=== PATIENT | female | born 1945 | race Caucasian/White ===

== ENCOUNTER → 2017-09-18 | Outpatient (CLI) | payer MEDICARE ==
--- NOTE | 2017-09-18 11:24 | Diagnostic Imaging Report ---
PROCEDURE:X-RAY ABDOMEN - KUB COMPARISON:None. INDICATIONS:CALCULUS OF KIDNEY FINDINGS: There is a non-obstructed bowel-gas pattern. Spine stimulator device overlying left lower quadrant. Soft tissue calcifications in bilateral upper quadrants as well as lower quadrants are probably vascular. There are no acute osseous abnormalities. Degenerative changes of the lower lumbar spine and bilateral hips. The lung bases are clear. CONCLUSION: Numerous calcifications overlying bilateral upper quadrants are felt to be vascular. If there is high clinical concern for renal calculus, consider obtaining renal stone protocol CT. Dictated by: Mert Seymour M.D. on 09/18/2017 at 11:28 Electronically approved by: Mert Seymour M.D. on 09/18/2017 at 11:28
== END ==
LOC: RAD 08:32
PROVIDERS: ATTEND Urology
DX: N20.0 Calculus of kidney (principal)
CPT/HCPCS: 74018

== ENCOUNTER → 2019-11-12 | Outpatient (CLI) | payer MEDICARE ==
--- NOTE | 2019-11-12 14:14 | Diagnostic Imaging Report ---
EXAM: CT Chest WITHOUT intravenous contrast 11/12/2019 1:30 PM INDICATION: ^[id number] ^1330 ^CHRONIC COUGH COMPARISON: None available TECHNIQUE: Chest was scanned utilizing a multidetector helical scanner from the lung apex through the level of the adrenal glands without administration of IV contrast. Coronal and sagittal reformations were obtained. Routine protocol was performed. IV CONTRAST: None RADIATION DOSE: Total DLP: 537 mGy*cm. Dose modulation, iterative reconstruction, and/or weight based adjustment of the mA/kV was utilized to reduce the radiation dose to as low as reasonably achievable. COMPLICATIONS: None FINDINGS: LINES/ TUBES: None. LUNGS AND AIRWAYS: Large airways are clear. Negative for focal consolidation. Apical predominant paraseptal emphysematous changes are noted. There are 5 mm and 2 mm nodules within the right lower lobe. Otherwise no suspicious nodule or mass. PLEURA: Negative for effusion or pneumothorax. HEART AND MEDIASTINUM: The thyroid gland is normal. No mediastinal, hilar or axillary lymphadenopathy. Calcified left hilar lymph nodes are noted. The heart is normal in size. There is no pericardial effusion. Coronary artery calcifications are noted. Mild atherosclerotic changes of the aortic arch are noted. UPPER ABDOMEN: Splenic calcifications are noted. Left hepatic hypertrophy with slightly nodular contours are noted which can is seen in patients with cirrhosis. Bilateral adrenal gland thickening is noted without discrete nodule. Hyperdense lesion is identified at the superior pole of the left kidney measuring up to 1.1 cm, indeterminate by this examination. BONES: Negative for acute osseous abnormality. Advanced degenerative changes lower cervical multilevel degenerative changes of the thoracic spine are noted. Thoracic spinal cord stimulators are noted. No suspicious lytic or blastic lesion. Healed right posterior rib deformities are noted. SOFT TISSUES: Soft tissues are unremarkable. COMPARISON: None IMPRESSION: 1. Mild emphysematous and COPD changes with multifocal scarring, predominantly within the lung apices. There are 5 mm and 2 mm nodules within the right lower lobe. Recommend obtaining prior outside hospital imaging to assess for stability. Guidelines for Management of Incidental Pulmonary Nodules Detected on CT Images: From the Fleischner Society 2017. Radiology 2017;284(1):228-243 Multiple Solid < 6 mm Patients at low risk for lung cancer: No routine follow-up Patients at high risk for lung cancer: CT at 12 months. If stable at 12 months, no further follow-up. 2. Question underlying cirrhotic liver morphology with hypertrophy of the left hepatic lobe and mildly nodular contours. 3. 1.1 cm left superior pole hyperdense renal lesion is indeterminate by this examination. This may relate to a hemorrhagic cyst. Consider follow-up. Nonemergent renal ultrasound versus renal protocol MRI. 4. Nonspecific bilateral adrenal gland thickening. Signed by: Al Mast MD on 11/12/2019 2:10 PM
== END ==
LOC: CT 13:06
PROVIDERS: ATTEND Internal Medicine
DX: R05 Cough (principal); J43.9 Emphysema, unspecified
CPT/HCPCS: 71250

== ENCOUNTER → 2019-12-12 | Outpatient (CLI) | payer MEDICARE ==
--- NOTE | 2019-12-12 13:47 | Diagnostic Imaging Report ---
Abdomen, one view AP INDICATION: ^[id number] ^1212 ^CALCULUS OF KIDNEY Comparison: CT chest dated 11/12/2019. Discussion: Hyperdense left superior pole renal mass is noted measuring up to 1.5 cm. No other calculi identified projecting over the renal shadows. Evaluation is limited due to overlying soft tissues and bowel gas. Splenic and hepatic calcifications are noted. Visualized bowel loops are not dilated. Partially visualized lung bases are clear. Bilateral lower quadrant calcifications are noted probably within the soft tissues or related to degenerative change. Left lower quadrant spinal cord stimulators noted. Advanced degenerative changes at the lumbosacral junction are noted. No acute osseous abnormality. Vascular calcifications are noted within the proximal lower extremities. IMPRESSION: 1. No radiographically apparent renal calculi. 2. Reinitiation of a hyperdense left superior pole renal lesion measuring up to 1.5 cm. Indeterminate by this examination. Signed by: Al Mast MD on 12/12/2019 1:44 PM
== END ==
LOC: RAD 12:03
PROVIDERS: ATTEND Urology
DX: N20.0 Calculus of kidney (principal)
CPT/HCPCS: 74018

== ENCOUNTER → 2020-03-18 | Outpatient (CLI) | payer MEDICARE | LOC: CT 07:49 | PROVIDERS: ATTEND Urology | DX: N20.0 Calculus of kidney (principal) | CPT/HCPCS: 74176 ==

== ENCOUNTER → 2020-03-25 | Outpatient (CLI) | payer MEDICARE ==
[~2020-03-25] MED LIST: IOPAMIDOL 370 MG/ML 200 ML INFUS..BTL INJ ONE; SODIUM CHLORIDE 0.9% 500ML 0 ML ONE; SODIUM CHLORIDE 0.9% 50ML 50 ML ONE
[2020-03-25 14:10] LABS: CREATININE, SERUM 1.29 mg/dL (0.57-1.11)
== END ==
LOC: CT 13:30
PROVIDERS: ATTEND Urology
DX: N28.1 Cyst of kidney, acquired (principal)
CPT/HCPCS: 36415; 74160; 82565; 84520; Q9967; J7040

== ENCOUNTER 2020-08-03 12:12 | Inpatient (IN) | payer MEDICARE ==
[2020-07-30 09:54] LABS: BASOPHILS % 0.6 % (0.0-1.0); EOSINOPHILS # (AUTO) 0.2 (0.0-0.4); EOSINOPHILS % 3.2 % (0.0-6.0); HEMATOCRIT 40.3 % (34.2-44.1); HEMOGLOBIN 12.3 g/dL (12.0-16.0); LYMPHOCYTES % 32.1 % (18.0-39.1); MEAN CORPUSCULAR HEMOGLOBIN 31.9 pg (28-32); MEAN CORPUSCULAR HGB CONC 30.5 g/dL (31-35); MEAN CORPUSCULAR VOLUME 104.4 fL (81-99); MONOCYTES # (AUTO) 0.7 (0.2-0.8); MONOCYTES % 11.1 % (4.4-11.3); NEUTROPHILS # (AUTO) 3.3 (2.1-6.9); NEUTROPHILS % 52.4 % (38.7-80.0); PLATELET COUNT 138 x10e3/uL (140-360); RED BLOOD COUNT 3.86 x10e6/uL (3.6-5.1); RED CELL DISTRIBUTION WIDTH 13.9 % (11.7-14.4)
[2020-07-30 10:13] LABS: ANION GAP 15.9 mmol/L (8-16); CALCIUM 9.5 mg/dL (8.4-10.2); CREATININE, SERUM 1.23 mg/dL (0.57-1.11); POTASSIUM 3.9 mmol/L (3.5-5.1)
[~2020-08-03 12:12] MED LIST changes: +ALBUTEROL0.63 MG/3 NEB; +ALLOPURINOL100 MG PO; +AMLODIPINE BESYL5 MG PO; +ASPIRIN81 MG PO; +BENAZEPRIL HCL10 MG PO; +CALCIUM CARBON500 MG PO; +CENTRUM ADULTS1 EACH PO; +COREG12.5 MG PO; +CRESTOR10 MG PO; +FLECTOR1 EACH TD; +FUROSEMIDE40 MG PO; +HYDROCODON-ACE1 EAC9 PO; -IOPAMIDOL 370 MG/ML 200 ML INFUS..BTL INJ ONE; +KRILL OIL 5001 EACH PO; +LEVOTHYROXINE112 MCG PO; +MELATONIN3 M1 PO; +MUCINEX DM ER1 EACH PO; +NIACIN ER1000 MG PO; +OMEPRAZOLE40 MG PO; +SERTRALINE HCL100 MG PO; -SODIUM CHLORIDE 0.9% 500ML 0 ML ONE; -SODIUM CHLORIDE 0.9% 50ML 50 ML ONE; +TIZANIDINE HCL4 MG PO; +TRELEGY ELLIPT1 EACH INH
[2020-08-03] MEDS ORDERED: GENTAMICIN 80MG/NS 100 ML 200 ML IV ONE (12:44)
[2020-08-03] MEDS ORDERED: PROPOFOL IV EMULSION 10 MG/ML 20 ML VIAL ONE (12:50)
[2020-08-03] MEDS ORDERED: LIDOCAINE HCL 2% JELLY 5 ML TUBE ONE (12:50)
[2020-08-03] MEDS ORDERED: SEVOFLURANE INHAL SOLN 250 ML PEN BTL ONE (12:50)
[2020-08-03] MEDS ORDERED: ONDANSETRON HCL INJ 2MG/ML 2ML 2 MG/ML VIAL ONE (12:50)
[2020-08-03] MEDS ORDERED: DEXAMETHASONE SOD PHOS INJ 4 MG/ML VIAL ONE (12:50)
[2020-08-03] MEDS ORDERED: POVIDONE IODINE 0.05% 0.05 % ML PO ONE (12:50)
[2020-08-03] MEDS ORDERED: ROCURONIUM BROMIDE 10 MG/ML 5ML VIAL IV ONE (12:50)
[2020-08-03] MEDS ORDERED: LIDOCAINE HCL 2% LOCAL INJ 5 ML SDV VIAL INJ ONE (12:50)
[2020-08-03] MEDS ORDERED: FENTANYL CITRATE/PF 100MCG/2 ML INJ ONE (13:10)
[2020-08-03] MEDS ORDERED: IOPAMIDOL 300MG/ML 50ML INFUS..BTL IV ONE (13:54)
[2020-08-03] MEDS ORDERED: LIDOCAINE 1% W/EPINEPHRINE 20 ML VIAL ONE (14:10)
[2020-08-03] MEDS ORDERED: GENTAMICIN SULFATE 40 MG/ML 2 ML VIAL ONE (14:11)
[2020-08-03] MEDS ORDERED: MUPIROCIN 2% OINT 22 GM TUBE ONE (14:11)
[2020-08-03] MEDS ORDERED: INDIGOTINDISULFONATE SODIUM 8 MG/ML AMP IJ ONE (14:11)
[2020-08-03] MEDS ORDERED: BUPIVACAINE 0.25% 30ML SDV ONE (14:11)
[2020-08-03] MEDS ORDERED: DIPHENHYDRAMINE HCL 25 MG CAP PO PRN (16:30)
[2020-08-03] MEDS ORDERED: ONDANSETRON HCL INJ 2MG/ML 2ML 2 MG/ML VIAL IV PRN (16:30)
[2020-08-03] MEDS ORDERED: ACETAMINOPHEN 1000 MG/100 ML 100 ML IV ONE (16:45)
[2020-08-03] MEDS ORDERED: CLINDAMYCIN 600MG / 50ML 50 ML IV ONE (16:47)
[2020-08-03] MEDS ORDERED: SUGAMMADEX SODIUM 200 MG/2 ML VIAL IV ONE (17:14)
[2020-08-03] MEDS: ACETAMINOPHEN/CODEINE 300MG - 30MG TAB PO PRN (18:55)
[2020-08-03] MEDS: D5.45%NS/KCL 20MEQ 1,000 ML IV SCH (19:13)
[2020-08-03] MEDS: DOCUSATE SODIUM 100 MG CAP PO SCH (19:13)
[2020-08-03 21:00] VITALS: BP 138/85
[2020-08-03 21:19] VITALS: BP 134/67
[2020-08-03 23:00] VITALS: BP 134/67
[2020-08-04] VITALS (8 sets, daily range): BP systolic 109–129; BP diastolic 50–68
[2020-08-04] MEDS: GENTAMICIN 80MG/NS 100 ML 100 ML IV SCH ×3 (00:09→16:33)
[2020-08-04] MEDS: CLINDAMYCIN 300MG 50 ML IV SCH ×3 (01:30→18:06)
[2020-08-04] MEDS: D5.45%NS/KCL 20MEQ 1,000 ML IV SCH ×4 (04:24→20:35)
[2020-08-04 05:16] LABS: BASOPHILS % 0.1 % (0.0-1.0); HEMATOCRIT 34.6 % (34.2-44.1); HEMOGLOBIN 10.7 g/dL (12.0-16.0); LYMPHOCYTES # (AUTO) 1.2 (1.0-3.2); LYMPHOCYTES % 14.7 % (18.0-39.1); MEAN CORPUSCULAR HEMOGLOBIN 31.6 pg (28-32); MEAN CORPUSCULAR HGB CONC 30.9 g/dL (31-35); MEAN CORPUSCULAR VOLUME 102.1 fL (81-99); MONOCYTES # (AUTO) 0.7 (0.2-0.8); MONOCYTES % 8.9 % (4.4-11.3); NEUTROPHILS % 75.9 % (38.7-80.0); PLATELET COUNT 106 x10e3/uL (140-360); RED BLOOD COUNT 3.39 x10e6/uL (3.6-5.1); RED CELL DISTRIBUTION WIDTH 13.4 % (11.7-14.4)
[2020-08-04 05:34] LABS: ANION GAP 11.1 mmol/L (8-16); BLOOD UREA NITROGEN 12 mg/dL (7-26); BUN/CREATININE RATIO 14 (6-25); CALCIUM 8.9 mg/dL (8.4-10.2); CARBON DIOXIDE 30 mmol/L (22-29); CHLORIDE 104 mmol/L (98-107); CREATININE, SERUM 0.87 mg/dL (0.57-1.11); EST GLOMERULAR FILTRATION RATE > 60 ML/MIN (60-); GLUCOSE 125 mg/dL (74-118); POTASSIUM 4.1 mmol/L (3.5-5.1); SODIUM 141 mmol/L (136-145)
[2020-08-04] MEDS: DOCUSATE SODIUM 100 MG CAP PO SCH ×2 (08:17→16:08)
[2020-08-04] MEDS: ACETAMINOPHEN/CODEINE 300MG - 30MG TAB PO PRN ×2 (09:46→15:14)
[2020-08-04] MEDS: PHENAZOPYRIDINE HCL 100 MG TAB PO PRN ×2 (09:46→15:14)
[2020-08-04] MEDS: SERTRALINE HCL 100 MG TAB PO SCH (16:09)
[2020-08-04] MEDS: ALLOPURINOL 100 MG TAB PO SCH (16:09)
[2020-08-04] MEDS ORDERED: CARVEDILOL12.5 MG PO (16:11)
[2020-08-04] MEDS ORDERED: CARVEDILOL 12.5 MG TAB PO SCH (17:00)
[2020-08-04] MEDS ORDERED: SIMVASTATIN 40 MG TAB PO SCH (21:00)
[2020-08-05] MEDS: GENTAMICIN 80MG/NS 100 ML 100 ML IV SCH ×3 (00:02→16:00)
[2020-08-05 00:22] VITALS: BP 124/58
[2020-08-05] MEDS: CLINDAMYCIN 300MG 50 ML IV SCH ×2 (01:42→11:00)
[2020-08-05 03:52] VITALS: BP 112/58
[2020-08-05 04:54] LABS: BASOPHILS % 0.3 % (0.0-1.0); EOSINOPHILS # (AUTO) 0.1 (0.0-0.4); EOSINOPHILS % 1.4 % (0.0-6.0); HEMATOCRIT 33.5 % (34.2-44.1); LYMPHOCYTES # (AUTO) 1.7 (1.0-3.2); LYMPHOCYTES % 22.7 % (18.0-39.1); MEAN CORPUSCULAR HEMOGLOBIN 31.5 pg (28-32); MEAN CORPUSCULAR HGB CONC 29.9 g/dL (31-35); MEAN CORPUSCULAR VOLUME 105.7 fL (81-99); MONOCYTES # (AUTO) 0.9 (0.2-0.8); MONOCYTES % 12.5 % (4.4-11.3); NEUTROPHILS # (AUTO) 4.6 (2.1-6.9); NEUTROPHILS % 62.7 % (38.7-80.0); PLATELET COUNT 87 x10e3/uL (140-360); RED BLOOD COUNT 3.17 x10e6/uL (3.6-5.1); RED CELL DISTRIBUTION WIDTH 13.8 % (11.7-14.4)
[2020-08-05 05:11] LABS: ANION GAP 11.2 mmol/L (8-16); CALCIUM 8.6 mg/dL (8.4-10.2); CREATININE, SERUM 1.02 mg/dL (0.57-1.11); POTASSIUM 4.2 mmol/L (3.5-5.1)
[2020-08-05] MEDS ORDERED: LEVOTHYROXINE SODIUM 125 MCG TAB PO SCH (06:00)
[2020-08-05] MEDS: D5.45%NS/KCL 20MEQ 1,000 ML IV SCH (08:00)
[2020-08-05] MEDS ORDERED: CARVEDILOL 12.5 MG TAB PO SCH (08:00)
[2020-08-05 08:03] VITALS: BP 137/72
[2020-08-05] MEDS ORDERED: AMLODIPINE BESYLATE 5 MG TAB PO SCH (09:00)
[2020-08-05] MEDS: DOCUSATE SODIUM 100 MG CAP PO SCH (09:00)
[2020-08-05] MEDS ORDERED: BENAZEPRIL HCL 10 MG TAB PO SCH (09:00)
[2020-08-05] MEDS: ALLOPURINOL 100 MG TAB PO SCH (09:00)
[2020-08-05] MEDS ORDERED: LEVOTHYROXINE SODIUM 112 MCG TAB PO SCH (09:00)
[2020-08-05] MEDS: SERTRALINE HCL 100 MG TAB PO SCH (09:00)
[2020-08-05 10:07] VITALS: BP 137/72
[2020-08-05 12:49] VITALS: BP 119/64
[2020-08-05] MEDS ORDERED: MACROBID 100 M100 MG PO (16:20)
[2020-08-05 16:50] VITALS: BP 128/69
== END 2020-08-05 17:21 | disposition home or self-care (01) | DRG 748 ==
LOC: OR 12:12 → PACU V 16:20 → MED/SURG 18:15
PROVIDERS: ADMIT Internal Medicine; ATTEND Internal Medicine
PROC: 0JUC0JZ Supplement of Pelvic Region Subcutaneous Tissue and Fascia with Synthetic Substitute, Open Approach (ICD-10-PCS; 2020-08-03)
PROC: BT141ZZ Fluoroscopy of Kidneys, Ureters and Bladder using Low Osmolar Contrast (ICD-10-PCS; principal; 2020-08-03 16:08)
DX: N81.4 Uterovaginal prolapse, unspecified (principal); N17.9 Acute kidney failure, unspecified; E66.01 Morbid (severe) obesity due to excess calories; Z88.0 Allergy status to penicillin; Z88.2 Allergy status to sulfonamides; Z88.8 Allergy status to other drugs, medicaments and biological substances; I10 Essential (primary) hypertension; R32 Unspecified urinary incontinence; Z87.440 Personal history of urinary (tract) infections; Z88.3 Allergy status to other anti-infective agents
CPT/HCPCS: 36415; 71046; 74420; 80048; 85025; 93005; 99251; C1752; C1758; J1100; J1580; J2001; J2405; J3010; U0002

== ENCOUNTER → 2021-04-27 | Outpatient (CLI) | payer MEDICARE ==
[~2021-04-27] MED LIST changes: +CARVEDILOL12.5 MG PO; +MACROBID 100 M100 MG PO
== END ==
LOC: US 08:03
PROVIDERS: ATTEND Urology
DX: N18.9 Chronic kidney disease, unspecified (principal); N28.1 Cyst of kidney, acquired
CPT/HCPCS: 76770

== ENCOUNTER → 2021-05-20 | Outpatient (CLI) | payer MEDICARE | LOC: CT 07:45 | PROVIDERS: ATTEND Anesthesiology Pain Medicine | DX: M19.011 Primary osteoarthritis, right shoulder (principal) ==

== ENCOUNTER → 2021-10-28 | Outpatient (CLI) | payer MEDICARE | LOC: DX 08:27 | PROVIDERS: ATTEND Internal Medicine | DX: M85.89 Other specified disorders of bone density and structure, multiple sites (principal) | CPT/HCPCS: 77080 ==

== ENCOUNTER → 2021-11-05 | Outpatient (CLI) | payer MEDICARE | LOC: CT 07:52 | PROVIDERS: ATTEND Internal Medicine | DX: R91.1 Solitary pulmonary nodule (principal); Z72.0 Tobacco use | CPT/HCPCS: 71250 ==

== ENCOUNTER → 2022-04-28 | Outpatient (CLI) | payer MEDICARE | LOC: RAD 08:26 | PROVIDERS: ATTEND Internal Medicine | DX: J45.901 Unspecified asthma with (acute) exacerbation (principal) | CPT/HCPCS: 71046 ==

== ENCOUNTER → 2022-08-01 | Outpatient (CLI) | payer MEDICARE | LOC: RAD 08:41 | PROVIDERS: ATTEND Internal Medicine | DX: J44.1 Chronic obstructive pulmonary disease with (acute) exacerbation (principal) | CPT/HCPCS: 71046 ==